=== PATIENT | male | born 1985 | race Caucasian/White ===

== ENCOUNTER 2022-05-12 06:59 | Emergency (ER) | payer OTHER, SELFPAY ==
--- NOTE | ~2022-05-12 | XR_ITS ---
EXAMINATION: XR CHEST CLINICAL INFORMATION: Chest pain. COMPARISON: None TECHNIQUE: Frontal view of the chest was obtained. FINDINGS: No significant abnormality is noted involving the heart, lungs, mediastinum, bony thorax or soft tissues. XR/XR chest 1V IMPRESSION: No acute cardiopulmonary process.
[2022-05-12 07:06] VITALS: BP 142/66; PULSE 66; RESP 20; TEMP 36.3; O2SAT 98; BMI 58.1
--- NOTE | 2022-05-12 07:06 | ECG_ITS ---
Test Reason : cp Blood Pressure : / mmHG Vent. Rate : 066 BPM Atrial Rate : 066 BPM P-R Int : 142 ms QRS Dur : 098 ms QT Int : 426 ms P-R-T Axes : 016 007 -06 degrees QTc Int : 446 ms Normal sinus rhythm Low voltage QRS ST elevation in Lateral leads Abnormal ECG No previous ECGs available Referred By: Generic ED Physician Electronically Signed By:ANGELIA THOMAS
--- NOTE | 2022-05-12 07:14 | ED.CHESTPAIN ---
HPI - Chest Pain General Chief Complaint: Chest Pain Stated Complaint: Chest pain, n/v Time Seen by Provider: 05/12/22 07:05 Source: patient Mode of arrival: ambulatory Limitations: no limitations History of Present Illness HPI narrative: 36 yo male with hx of obesity, wheezing, urinary incontinence notes this AM he just felt off, his chest feels tight, he feels nauseated and just doesn't feel well with a sore throat. He took a rapid test it was negative. No known sick contacts. 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 MD complaint: chest pain (nausea, dizziness) Onset (ago): day(s) (2) Timing of current episode: constant Prior episodes: No Onset: during rest Pain location: left chest and right chest Pain radiation: none Severity: mild Quality: tightness Relieving factors: nothing Exacerbating factors: movement Associated symptoms: nausea, dyspnea and cough Treatment prior to arrival: none Related Data Previous Rx's Medication Instructions Recorded albuterol sulfate 90 mcg/actuation 2 puff inhalation QID PRN 05/12/22 aerosol inhaler shortness of breath or wheezing #6.7 grams clotrimazole 1 % topical cream 1 appl topical BID 2 weeks #30 05/12/22 (Athlete's Foot (clotrimazole)) grams fluticasone furoate 100 1 inh inhalation Q24H #30 ea 05/12/22 mcg/actuation blister powder for inhalation nystatin 100,000 unit/gram topical 1 appl topical DAILY 1 week #30 05/12/22 powder grams ondansetron 4 mg disintegrating 4 mg PO Q8H PRN nausea and 05/12/22 tablet vomiting #20 tabs Allergies Allergy/AdvReac Type Severity Reaction Status Date / Time divalproex sodium Allergy Severe HIVES Verified 05/12/22 07:43 [From [facility]] Review of Systems Review of Systems: Constitutional : No Weight loss, No Fever, pos Chills ENT/Mouth : No sore throat, No Rhinorrhea Eyes: No Eye Pain, No Swelling Cardiovascular : pos Chest Pain, pos SOB, no Dyspnea on Exertion, No Orthopnea, No Edema, No Palpitations Respiratory : pos Cough, No Sputum Gastrointestinal : pos Nausea, No Vomiting, No Diarrhea, No abdominal Pain, No Hematochezia, No Melena Genitourinary : No Dysuria, No Urinary Frequency Musculoskeletal : No joint pain, No Myalgias, No Joint Swelling Skin : No Skin Lesions, No rash Neuro : No Weakness, No Numbness, pos Dizziness, No Headache Psych : No Anxiety/Panic, No Depression Heme/Lymph: No Bruising, No Lymphadenopathy Endocrine : No Polyuria, No Polydipsia All other systems reviewed and are negative [facility] Past Medical History Attestation statement: The following information was validated with the patient. Medical History Obesity Urinary incontinence Wheezing Social History Social History (Updated 05/12/22 @ 07:35 by Erika Nino DO) Patient Tobacco Use Status: Current everyday Tobacco user Use of substances other than those prescribed or required for medical reasons: No Advance Directives: Yes Advance Directives Information Provided: Yes Advance Directives on File: No Physical Exam Vital Signs: Vital Signs: Last Vital Signs Temp 97.5 F 05/12/22 11:53 Pulse 57 05/12/22 11:53 Resp 23 H 05/12/22 11:53 BP 113/64 05/12/22 11:53 Pulse Ox 95 05/12/22 11:53 O2 Del Method 05/12/22 11:53 BMI result Body Mass Index 58.1 Appearance: Alert. Oriented X3. No acute distress. Eyes: Pupils equal, round and reactive to light. ENT: Pharynx normal. Neck: Normal inspection. Neck supple. CVS: Normal heart rate and rhythm. Pulses normal. Respiratory: No respiratory distress. Breath sounds diffuse wheezing noted Abdomen: Soft and nontender. Obese Skin: Skin warm and dry. Normal skin color. Normal skin turgor. Extremities: No lower extremity edema. No calf ttp Neuro: Oriented X 3. No motor deficit. No sensory deficit. Course Course Course Narrative: patient feels much better repeat trop flat ddimer negative CXR and COVID negative Procedures Procedure Narrative Procedure Narrative: bedside ECHO no pericardial effusion seen no GWMA MDM - Chest Pain MDM Narrative Medical decision making narrative: 36 yo male with hx of obesity, wheezing, urinary incontinence comes in with constellation of symptoms with chills, chest tightness/wheezing, nonspecific EKG - could be COVID infection at this time will need labs, troponin, ddimer, CXR, duoneb, IV zofran. Possible viral infection - dispo per results and findings. Lab Data Result diagrams: 05/12/22 07:54 05/12/22 07:53 Labs: Lab Results 05/12/22 05/12/22 05/12/22 Range/Units 07:53 07:53 07:53 WBC (4.8-10.8) X10*3/uL RBC (4.60-5.80) X10*6/uL Hgb (14.0-18.0) g/dl Hct (42.0-52.0) % MCV (80.0-98.0) fL MCH (27.0-33.0) pg MCHC (31.0-36.0) g/dl RDW (11.0-16.0) % Plt Count (160-400) X10*3/uL MPV (9.4-12.4) fL Immature Gran % (Auto) (0.0-0.4) % Neut % (Auto) (45-73) % Lymph % (Auto) (20-40) % [place] % (Auto) (2-11) % Eos % (Auto) (0-4) % Baso % (Auto) (0-2) % Lymph # (Auto) (1.2-4.9) X10*3/uL [place] # (Auto) (0.1-1.2) X10*3/uL Eos # (Auto) (0.0-0.4) X10*3/uL Baso # (Auto) (0.0-0.2) X10*3/uL Abs Immat Gran (auto) (0.00-0.03) X10*3/uL Absolute Neuts (auto) (2.0-8.3) x10*3/uL Absolute Nucleated RBC (0.0-0.012) X10*3/uL Nucleated RBC % (auto) (0.0-0.2) /100WBC D-Dimer High Sensitivty < 150 NG/ML Sodium 140 (135-145) mmol/L Potassium 4.0 (3.3-5.1) mmol/L Chloride 106 (96-108) mmol/L Carbon Dioxide 23 (22-29) mmol/L Anion Gap 15 (12-20) BUN 17 H (9-16) mg/dL Creatinine 0.88 (0.5-1.4) mg/dL Estim Creat Clear Calc 198.3 Estimated GFR > 60 Random Glucose 118 H (60-115) mg/dL Calcium 8.9 (8.4-10.2) mg/dL Magnesium 2.0 (1.6-2.6) mg/dL Total Bilirubin 0.7 (0.0-1.0) mg/dL Direct Bilirubin 0.3 (0.0-0.5) mg/dL AST 30 (5-37) U/L ALT 47 H (0-40) U/L Alkaline Phosphatase 89 (39-117) U/L Troponin I High Sens < 3.5 (<3.5-35.0) ng/L B-Natriuretic Peptide < 10 (<100) pg/mL Total Protein 6.9 (6.5-8.0) g/dL Albumin 4.2 (3.5-5.0) g/dL COVID-19 (NICHOL) (Negative) COVID-19 Clin Com 05/12/22 05/12/22 05/12/22 Range/Units 07:53 07:54 11:08 WBC 6.5 (4.8-10.8) X10*3/uL RBC 5.23 (4.60-5.80) X10*6/uL Hgb 15.5 (14.0-18.0) g/dl Hct 46.8 (42.0-52.0) % MCV 89.5 (80.0-98.0) fL MCH 29.6 (27.0-33.0) pg MCHC 33.1 (31.0-36.0) g/dl RDW 14.1 (11.0-16.0) % Plt Count 219 (160-400) X10*3/uL MPV 10.1 (9.4-12.4) fL Immature Gran % (Auto) 0.8 H (0.0-0.4) % Neut % (Auto) 70.2 (45-73) % Lymph % (Auto) 17.8 L (20-40) % [place] % (Auto) 8.3 (2-11) % Eos % (Auto) 2.3 (0-4) % Baso % (Auto) 0.6 (0-2) % Lymph # (Auto) 1.2 (1.2-4.9) X10*3/uL [place] # (Auto) 0.5 (0.1-1.2) X10*3/uL Eos # (Auto) 0.2 (0.0-0.4) X10*3/uL Baso # (Auto) 0.0 (0.0-0.2) X10*3/uL Abs Immat Gran (auto) 0.05 H (0.00-0.03) X10*3/uL Absolute Neuts (auto) 4.6 (2.0-8.3) x10*3/uL Absolute Nucleated RBC 0.000 (0.0-0.012) X10*3/uL Nucleated RBC % (auto) 0.0 (0.0-0.2) /100WBC D-Dimer High Sensitivty NG/ML Sodium (135-145) mmol/L Potassium (3.3-5.1) mmol/L Chloride (96-108) mmol/L Carbon Dioxide (22-29) mmol/L Anion Gap (12-20) BUN (9-16) mg/dL Creatinine (0.5-1.4) mg/dL Estim Creat Clear Calc Estimated GFR Random Glucose (60-115) mg/dL Calcium (8.4-10.2) mg/dL Magnesium (1.6-2.6) mg/dL Total Bilirubin (0.0-1.0) mg/dL Direct Bilirubin (0.0-0.5) mg/dL AST (5-37) U/L ALT (0-40) U/L Alkaline Phosphatase (39-117) U/L Troponin I High Sens < 3.5 (<3.5-35.0) ng/L B-Natriuretic Peptide (<100) pg/mL Total Protein (6.5-8.0) g/dL Albumin (3.5-5.0) g/dL COVID-19 (NICHOL) Negative (Negative) COVID-19 Clin Com See Note ECG Data ECG #1: Attestation: I personally reviewed and interpreted this ECG as follows: ECG interpretation date: 05/12/22 ECG interpretation time: 07:15 Interpretation: Rate: 66 Rhythm: NSR [place]: normal Normal P waves. Normal BRITTANY. Normal QRS complex. ST T wave : inverted inf leads, no RASHAUN, inverted t waves V1-V3 qTC: normal prior studies: none available The study has been interpreted contemporaneously by me. . ECG #2: Attestation: I personally reviewed and interpreted this ECG as follows: ECG interpretation date: 05/12/22 ECG interpretation time: 12:26 Interpretation: Rate: 58 Rhythm: NSR [place]: normal Normal P waves. Normal BRITTANY. Normal QRS complex. ST T wave : nonspecific no RASHAUN qTC: normal prior studies: no sig change The study has been interpreted contemporaneously by me. . Discharge Plan Discharge Clinical Impression: Atypical chest pain, Acute viral syndrome, Wheezing Patient Disposition: Home, Self-Care Instructions: Chest Pain (ED), Viral Syndrome (ED), Wheezing (ED) Additional Instructions: return to ED for any worsening symptoms or concerns please follow up with your primary care doctor next week Prescriptions: New clotrimazole [Athlete's Foot (clotrimazole)] 1 % cream 1 appl topical BID 14 Days Qty: 30 0RF nystatin 100,000 unit/gram powder 1 appl topical DAILY 7 Days Qty: 30 0RF albuterol sulfate 90 mcg/actuation HFA aerosol inhaler 2 puff inhalation QID PRN (Reason: shortness of breath or wheezing) Qty: 6.7 0RF fluticasone furoate 100 mcg/actuation blister with device 1 inh inhalation Q24H Qty: 30 0RF Rx Instructions: rinse mouth after ondansetron 4 mg tablet,disintegrating 4 mg PO Q8H PRN (Reason: nausea and vomiting) Qty: 20 0RF Referrals: Trevor Gatica MD [Physician] - 2 weeks Stand Alone Forms: Work/School Release
[2022-05-12] MEDS: Albuterol/Iprat 2.5/0.5MG 3 ML AMPUL.NEB INHALE (07:33)
[2022-05-12 07:35] VITALS: PULSE 60; RESP 18; O2SAT 100
[2022-05-12] MEDS: ondansetron HCL 4 MG/2 ML VIAL IVPUSH (07:58)
[2022-05-12 07:59] LABS: MANUAL DIFF FLAG NO
[2022-05-12 08:01] LABS: Basophils Percent Auto 0.6 % (0-2); Eosinophils Absolute Auto 0.2 X10*3/uL (0.0-0.4); Eosinophils Percent Auto 2.3 % (0-4); Hematocrit 46.8 % (42.0-52.0); Hemoglobin 15.5 g/dl (14.0-18.0); Imm Gran Abs Auto 0.05 X10*3/uL (0.00-0.03); Imm Gran Pct Auto 0.8 % (0.0-0.4); Lymphocytes Absolute Auto 1.2 X10*3/uL (1.2-4.9); Lymphocytes Percent Auto 17.8 % (20-40); Mean Corpuscular HGB Conc 33.1 g/dl (31.0-36.0); Mean Corpuscular Hemoglobin 29.6 pg (27.0-33.0); Mean Corpuscular Volume 89.5 fL (80.0-98.0); Mean Platelet Volume 10.1 fL (9.4-12.4); Monocytes Absolute Auto 0.5 X10*3/uL (0.1-1.2); Monocytes Percent Auto 8.3 % (2-11); Neutrophils Absolute Auto 4.6 x10*3/uL (2.0-8.3); Neutrophils Percent Auto 70.2 % (45-73); Platelet Count 219 X10*3/uL (160-400); Red Blood Count 5.23 X10*6/uL (4.60-5.80); Red Cell Distribution Width 14.1 % (11.0-16.0); White Blood Count 6.5 X10*3/uL (4.8-10.8)
[2022-05-12 08:13] LABS: D Dimer High Sensitivity < 150 NG/ML
[2022-05-12 08:16] LABS: IDNOW Serial# 55D5AD1C
[2022-05-12 08:17] LABS: COVID-19 Test Negative (Negative)
[2022-05-12 08:19] LABS: Alanine Aminotransferase 47 U/L (0-40); Albumin Level 4.2 g/dL (3.5-5.0); Alkaline Phosphatase 89 U/L (39-117); Anion Gap 15 (12-20); Aspartate Amino Transferase 30 U/L (5-37); Bilirubin Direct 0.3 mg/dL (0.0-0.5); Bilirubin Total 0.7 mg/dL (0.0-1.0); Blood Urea Nitrogen 17 mg/dL (9-16); Calcium 8.9 mg/dL (8.4-10.2); Carbon Dioxide 23 mmol/L (22-29); Chloride 106 mmol/L (96-108); Creatinine Clr Calc Pharmacy 198.3; Estimated Glomerular Filt Rate > 60; Glucose Random 118 mg/dL (60-115); Sodium 140 mmol/L (135-145); Total Protein 6.9 g/dL (6.5-8.0)
[2022-05-12 08:25] LABS: B Type Natriuretic Peptide < 10 pg/mL (<100); Troponin-I High Sensitivity < 3.5 ng/L (<3.5-35.0)
--- NOTE | 2022-05-12 09:33 | PC.NURSE ---
PT SLEEPING AT THIS TIME. WILL CONTINUE TO MONITOR
[2022-05-12 11:14] VITALS: BP 113/56; PULSE 59; RESP 26; O2SAT 94
[2022-05-12 11:48] LABS: Troponin-I High Sensitivity < 3.5 ng/L (<3.5-35.0)
[2022-05-12 11:53] VITALS: BP 113/64; PULSE 57; RESP 23; TEMP 36.4; O2SAT 95
--- NOTE | 2022-05-12 11:56 | PC.NURSE ---
Pt V/S are stable, Pt is on the telemetry and shows sinus bradychardia. Pt a/o x4. Will continue to monitor.
--- NOTE | 2022-05-12 12:06 | ECG_ITS ---
Test Reason : dyspnea Blood Pressure : / mmHG Vent. Rate : 058 BPM Atrial Rate : 058 BPM P-R Int : 152 ms QRS Dur : 098 ms QT Int : 466 ms P-R-T Axes : 016 021 004 degrees QTc Int : 457 ms Sinus bradycardia Low voltage QRS ST elevation in Lateral leads Nonspecific T wave abnormality Abnormal ECG When compared with ECG of 12-MAY-2022 07:06, Nonspecific T wave abnormality is now Present Referred By: Erika Nino Electronically Signed By:ANGELIA THOMAS
--- NOTE | 2022-05-12 12:27 | PC.NURSE ---
ekg performed by tech, provider in room performing bedside us
== END 2022-05-12 12:59 | disposition home or self-care (01) ==
PROVIDERS: Emergency Provider Emergency Medicine
DX: B34.9 Viral infection, unspecified (principal); R06.00 Dyspnea, unspecified; R07.89 Other chest pain; R42 Dizziness and giddiness; R06.02 Shortness of breath; Z20.822 Contact with and (suspected) exposure to COVID-19; Z79.899 Other long term (current) drug therapy; F17.200 Nicotine dependence, unspecified, uncomplicated; Z71.6 Tobacco abuse counseling
CPT/HCPCS: 36415; 71045; 80048; 80076; 83735; 83880; 84484; 85025; 85379; 87635; 93005; 94640; 96374; 99284; 99285; J2405

== ENCOUNTER 2022-07-03 21:16 | Emergency (ER) | payer OTHER, SELFPAY ==
--- NOTE | ~2022-07-03 | XR_ITS ---
EXAMINATION: XR CHEST CLINICAL INFORMATION: Chest tightness with deep breathing COMPARISON: 05/12/2022 TECHNIQUE: Frontal view of the chest was obtained. FINDINGS: No significant abnormality is noted involving the heart, lungs, mediastinum, bony thorax or soft tissues. XR/XR chest 1V IMPRESSION: Unremarkable examination.
[2022-07-03 21:19] VITALS: BP 158/56; PULSE 78; RESP 18; TEMP 37.1; O2SAT 97; BMI 55.7
--- NOTE | 2022-07-03 21:34 | ECG_ITS ---
Test Reason : SOB Blood Pressure : / mmHG Vent. Rate : 071 BPM Atrial Rate : 071 BPM P-R Int : 156 ms QRS Dur : 102 ms QT Int : 384 ms P-R-T Axes : 049 013 016 degrees QTc Int : 417 ms Normal sinus rhythm Intra-ventricular conduction delay Low voltage QRS Borderline ECG When compared with ECG of 12-MAY-2022 12:20, No significant change was found Referred By: Lisa Stone Electronically Signed By:DESTINI KUMAR MD
[2022-07-03 22:02] LABS: MANUAL DIFF FLAG NO
[2022-07-03 22:03] LABS: Basophils Absolute Auto 0.1 X10*3/uL (0.0-0.2); Basophils Percent Auto 0.5 % (0-2); Eosinophils Absolute Auto 0.2 X10*3/uL (0.0-0.4); Eosinophils Percent Auto 1.7 % (0-4); Imm Gran Abs Auto 0.07 X10*3/uL (0.00-0.03); Imm Gran Pct Auto 0.6 % (0.0-0.4); Lymphocytes Percent Auto 17.2 % (20-40); Mean Corpuscular HGB Conc 33.3 g/dl (31.0-36.0); Mean Corpuscular Hemoglobin 29.7 pg (27.0-33.0); Mean Corpuscular Volume 89.1 fL (80.0-98.0); Mean Platelet Volume 10.1 fL (9.4-12.4); Monocytes Absolute Auto 0.6 X10*3/uL (0.1-1.2); Monocytes Percent Auto 4.9 % (2-11); Neutrophils Absolute Auto 8.6 x10*3/uL (2.0-8.3); Neutrophils Percent Auto 75.1 % (45-73); Platelet Count 249 X10*3/uL (160-400); Red Blood Count 5.05 X10*6/uL (4.60-5.80); Red Cell Distribution Width 13.7 % (11.0-16.0); White Blood Count 11.4 X10*3/uL (4.8-10.8)
[2022-07-03] MEDS: Fluorescein Sodium STRIP 1 STRIP EYE-BOTH (22:15)
[2022-07-03] MEDS: Tetracaine HCl/PF 0.5% Oph Sol 4 ML DROPS 1 DROP EYE-BOTH (22:15)
[2022-07-03 22:18] LABS: Anion Gap 14 (12-20); Blood Urea Nitrogen 13 mg/dL (9-16); Calcium 9.1 mg/dL (8.4-10.2); Carbon Dioxide 25 mmol/L (22-29); Chloride 107 mmol/L (96-108); Creatinine Clr Calc Pharmacy 184.8; Estimated Glomerular Filt Rate > 60; Glucose Random 108 mg/dL (60-115); Potassium 3.7 mmol/L (3.3-5.1); Sodium 142 mmol/L (135-145)
[2022-07-03 22:20] LABS: Influenza A PCR NEGATIVE (Negative); Influenza B PCR NEGATIVE (Negative); Resp Syncy Virus RNA Qual PCR NEGATIVE (Negative); SARS COV2 PCR INHOUSE NEGATIVE (Negative)
--- NOTE | 2022-07-03 22:21 | ED_ITS ---
HPI - General Adult General Chief complaint: General Medical Stated complaint: foreign object in eye Time Seen by Provider: 07/03/22 21:59 Source: patient Mode of arrival: ambulatory Limitations: no limitations History of Present Illness HPI narrative: Patient comes to the emergency room complaining of foreign body in his right eye. Also complaining of chronic chest tightness and mild shortness of breath. Patient states that yesterday he was working under a car, hit a felt something go into his eye. Patient has been trying to rinse is high at home and applied erythromycin ointment that he had left over from a similar incidents. Patient states that he does not have pain with eye movement, but is complaining of constant foreign body sensation in the eye. Patient has history of chronic shortness of breath. To his knowledge, he has never been diagnosed with asthma on shortness of breath. However, he has been prescribed prednisone in the past. Patient admits to smoking daily. Patient denies coughing, no fever or chills Related Data Previous Rx's Medication Instructions Recorded albuterol sulfate 90 mcg/actuation 2 puff inhalation QID PRN 05/12/22 aerosol inhaler shortness of breath or wheezing #6.7 grams clotrimazole 1 % topical cream 1 appl topical BID 2 weeks #30 05/12/22 (Athlete's Foot (clotrimazole)) grams fluticasone furoate 100 1 inh inhalation Q24H #30 ea 05/12/22 mcg/actuation blister powder for inhalation nystatin 100,000 unit/gram topical 1 appl topical DAILY 1 week #30 05/12/22 powder grams ondansetron 4 mg disintegrating 4 mg PO Q8H PRN nausea and 05/12/22 tablet vomiting #20 tabs albuterol sulfate 90 mcg/actuation 2 puff inhalation Q4-6H PRN 07/03/22 aerosol inhaler shortness of breath or wheezing #8.5 grams erythromycin 5 mg/gram (0.5 %) eye 0.5 inch ophthalmic (eye) QID #3.5 07/03/22 ointment grams prednisone 50 mg tablet 50 mg PO DAILY #5 tabs 07/03/22 Allergies Allergy/AdvReac Type Severity Reaction Status Date / Time divalproex sodium Allergy Severe HIVES Verified 05/12/22 07:43 [From [facility]] Review of Systems Review of Systems: Constitutional : No Weight loss, No Fever, No Chills, No Night Sweats, No Fatigue, No Malaise ENT/Mouth : No Hearing loss, No Ear Pain, No Nasal Congestion, No Sinus Pain, No Hoarseness, No sore throat, No Rhinorrhea, No Swallowing Difficulty Eyes: Complaining of eye foreign body sensation, redness, burning sensation, denies pain with eye movement, states that his vision is at baseline bilaterally Cardiovascular : No Chest Pain, no edema, no palpitations Respiratory : No Cough, complaining of chronic shortness of breath Gastrointestinal : No Nausea, No Vomiting, No Diarrhea, No Constipation, No abdominal Pain, No Hematochezia, No Melena Genitourinary : no irregular bleeding, No Dysuria, No Urinary Frequency, No Hematuria, No Urinary Incontinence, No Urgency, No Flank Pain, No Urinary Flow Changes, No Hesitancy Musculoskeletal : No joint pain, No Myalgias, No Joint Swelling Skin : No Skin Lesions, No rash Neuro : No Weakness, No Numbness, No Paresthesias, No Loss of Consciousness, No Dizziness, No Headache Psych : No Anxiety/Panic, No Depression, No SI/HI/AH/VH, No Social Issues, Heme/Lymph: No Bruising, No Bleeding,No Lymphadenopathy Endocrine : No Polyuria, No Polydipsia, No Temperature Intolerance PMFSH Past Medical History Medical History Obesity Urinary incontinence Wheezing Social History Social History (Updated 05/12/22 @ 07:35 by Erika Nino DO) Patient Tobacco Use Status: Current everyday Tobacco user Advance Directives: No Physical Exam ED Vital Signs: Vital Signs - 24 hr 07/03/22 21:19 07/03/22 22:46 Temperature 98.7 F Pulse Rate 78 67 Respiratory Rate 18 16 Blood Pressure 158/56 H Pulse Oximetry 97 Oxygen Delivery Method Room Air BMI result Body Mass Index 55.7 Const Other: Appearance: Alert. Oriented X3. No acute distress. Eyes: Pupils equal, round and reactive to light. Injected sclera and conjunctiva in the right eye, no foreign body visualized, no corneal injury under Wood's lamp and fluorescein stain, eye pressure 22 mmHg ENT: Pharynx normal. Neck: Normal inspection. Neck supple. No lymph nodes noted. No crepitus CVS: Normal heart rate and rhythm. Pulses normal. Normal S1 and S2 Respiratory: No respiratory distress. Breath sounds normal. No Wheezing. No rales Abdomen: Soft and nontender. No rigidity. No distention. Skin: Skin warm and dry. Normal skin color. Normal skin turgor. Extremities: No lower extremity edema. No Lacerations. No Rash Neuro: Oriented X 3. No motor deficit. No sensory deficit. Moving all extremities. No slurred speech. CN 2 through 12 grossly intact Psych: calm, cooperative, normal affect Course Course Course Narrative: Patient has significant scleral injection, no corneal injuries were visualized under Wood's lamp with fluorescein stain. Eye pressure 22 mmHg, not concerning for closed angle glaucoma. Discussed with patient that he will need more erythromycins ointment, and he will be provided with Dr. Longoria's office phone number Patient does have mild wheezing. I discussed with the patient that he may be a at the beginning of COPD. Patient is a heavy smoker. Discussed with the patient that he needs to follow up with his primary care physician and be referred for a pulmonary function test Patient is receiving at this time oral prednisone and a breathing treatment with albuterol Patient's EKG, troponin, BNP, chest x-ray, COVID/RSV/flu test negative. White blood cell count slightly elevated 11.4, likely reactive leukocytosis. Medications Administered Discontinued Medications Generic Name Dose Route Start Last Admin Trade Name Freq PRN Reason Stop Dose Admin Albuterol Sulfate 2.5 mg 07/03/22 22:31 07/03/22 22:44 Albuterol Sulfate (0.083%) 2.5 Mg/3 Ml Vial.Neb INHALE 07/03/22 22:32 2.5 mg ONCE ONE Administration Prednisone 60 mg 07/03/22 22:31 07/03/22 23:06 Prednisone 20 Mg Tablet PO 07/03/22 22:32 60 mg ONCE ONE Administration Medical Decision Making Lab Data Result diagrams: 07/03/22 21:56 07/03/22 21:56 Labs: Lab Results 07/03/22 07/03/22 07/03/22 Range/Units 21:26 21:56 21:56 WBC 11.4 H (4.8-10.8) X10*3/uL RBC 5.05 (4.60-5.80) X10*6/uL Hgb 15.0 (14.0-18.0) g/dl Hct 45.0 (42.0-52.0) % MCV 89.1 (80.0-98.0) fL MCH 29.7 (27.0-33.0) pg MCHC 33.3 (31.0-36.0) g/dl RDW 13.7 (11.0-16.0) % Plt Count 249 (160-400) X10*3/uL MPV 10.1 (9.4-12.4) fL Immature Gran % (Auto) 0.6 H (0.0-0.4) % Neut % (Auto) 75.1 H (45-73) % Lymph % (Auto) 17.2 L (20-40) % [place] % (Auto) 4.9 (2-11) % Eos % (Auto) 1.7 (0-4) % Baso % (Auto) 0.5 (0-2) % Lymph # (Auto) 2.0 (1.2-4.9) X10*3/uL [place] # (Auto) 0.6 (0.1-1.2) X10*3/uL Eos # (Auto) 0.2 (0.0-0.4) X10*3/uL Baso # (Auto) 0.1 (0.0-0.2) X10*3/uL Abs Immat Gran (auto) 0.07 H (0.00-0.03) X10*3/uL Absolute Neuts (auto) 8.6 H (2.0-8.3) x10*3/uL Absolute Nucleated RBC 0.000 (0.0-0.012) X10*3/uL Nucleated RBC % (auto) 0.0 (0.0-0.2) /100WBC Sodium 142 (135-145) mmol/L Potassium 3.7 (3.3-5.1) mmol/L Chloride 107 (96-108) mmol/L Carbon Dioxide 25 (22-29) mmol/L Anion Gap 14 (12-20) BUN 13 (9-16) mg/dL Creatinine 0.92 (0.5-1.4) mg/dL Estim Creat Clear Calc 184.8 Estimated GFR > 60 Random Glucose 108 (60-115) mg/dL Calcium 9.1 (8.4-10.2) mg/dL Troponin I High Sens (<3.5-35.0) ng/L B-Natriuretic Peptide (<100) pg/mL Influenza Type A (PCR) NEGATIVE (Negative) Influenza Type B (PCR) NEGATIVE (Negative) RSV RNA Qual (PCR) NEGATIVE (Negative) SARS-CoV-2 RNA (RT-PCR) NEGATIVE (Negative) 07/03/22 07/03/22 Range/Units 21:56 21:56 WBC (4.8-10.8) X10*3/uL RBC (4.60-5.80) X10*6/uL Hgb (14.0-18.0) g/dl Hct (42.0-52.0) % MCV (80.0-98.0) fL MCH (27.0-33.0) pg MCHC (31.0-36.0) g/dl RDW (11.0-16.0) % Plt Count (160-400) X10*3/uL MPV (9.4-12.4) fL Immature Gran % (Auto) (0.0-0.4) % Neut % (Auto) (45-73) % Lymph % (Auto) (20-40) % [place] % (Auto) (2-11) % Eos % (Auto) (0-4) % Baso % (Auto) (0-2) % Lymph # (Auto) (1.2-4.9) X10*3/uL [place] # (Auto) (0.1-1.2) X10*3/uL Eos # (Auto) (0.0-0.4) X10*3/uL Baso # (Auto) (0.0-0.2) X10*3/uL Abs Immat Gran (auto) (0.00-0.03) X10*3/uL Absolute Neuts (auto) (2.0-8.3) x10*3/uL Absolute Nucleated RBC (0.0-0.012) X10*3/uL Nucleated RBC % (auto) (0.0-0.2) /100WBC Sodium (135-145) mmol/L Potassium (3.3-5.1) mmol/L Chloride (96-108) mmol/L Carbon Dioxide (22-29) mmol/L Anion Gap (12-20) BUN (9-16) mg/dL Creatinine (0.5-1.4) mg/dL Estim Creat Clear Calc Estimated GFR Random Glucose (60-115) mg/dL Calcium (8.4-10.2) mg/dL Troponin I High Sens < 3.5 (<3.5-35.0) ng/L B-Natriuretic Peptide < 10 (<100) pg/mL Influenza Type A (PCR) (Negative) Influenza Type B (PCR) (Negative) RSV RNA Qual (PCR) (Negative) SARS-CoV-2 RNA (RT-PCR) (Negative) Discharge Plan Discharge Clinical Impression: Sensation of foreign body in eye, Bilateral wheezing Patient Disposition: Home, Self-Care Instructions: Eye Foreign Body (ED) Additional Instructions: Please follow-up with your primary care physician tomorrow an cyber crime investigator. You may need a referral for pulmonary function tests, you may have asthma versus COPD. If you have any worsening or new symptoms, please return to the emergency room or call 911 Prescriptions: New prednisone 50 mg tablet 50 mg PO DAILY Qty: 5 0RF albuterol sulfate 90 mcg/actuation HFA aerosol inhaler 2 puff inhalation Q4-6H PRN (Reason: shortness of breath or wheezing) Qty: 8.5 0RF erythromycin 5 mg/gram (0.5 %) ointment 0.5 inch ophthalmic (eye) QID Qty: 3.5 0RF No Action clotrimazole [Athlete's Foot (clotrimazole)] 1 % cream 1 appl topical BID 14 Days Qty: 30 0RF nystatin 100,000 unit/gram powder 1 appl topical DAILY 7 Days Qty: 30 0RF albuterol sulfate 90 mcg/actuation HFA aerosol inhaler 2 puff inhalation QID PRN (Reason: shortness of breath or wheezing) Qty: 6.7 0RF fluticasone furoate 100 mcg/actuation blister with device 1 inh inhalation Q24H Qty: 30 0RF Rx Instructions: rinse mouth after ondansetron 4 mg tablet,disintegrating 4 mg PO Q8H PRN (Reason: nausea and vomiting) Qty: 20 0RF Referrals: Atul Longoria [Physician] - 1 day
[2022-07-03 22:26] LABS: Troponin-I High Sensitivity < 3.5 ng/L (<3.5-35.0)
[2022-07-03] MEDS: Albuterol Sulfate (0.083%) 2.5 MG/3 ML VIAL.NEB INHALE (22:44)
[2022-07-03 22:46] VITALS: PULSE 67; RESP 16; O2SAT 96
[2022-07-03 23:01] LABS: B Type Natriuretic Peptide < 10 pg/mL (<100)
[2022-07-03] MEDS: predniSONE 20 MG TABLET 60 MG PO (23:06)
--- NOTE | 2022-07-03 23:07 | PC.NURSE ---
Administered prednisone per MAR.
--- NOTE | 2022-07-04 00:04 | PC.NURSE ---
Discharge instructions given and explained to patient, ambulates safely and independently. No respiratory distress. Patient speaking in full sentences.
== END 2022-07-04 00:05 | disposition home or self-care (01) ==
PROVIDERS: Emergency Provider Emergency Medicine; PCP Nurse Practitioner Family
DX: R06.2 Wheezing (principal); Z18.89 Other specified retained foreign body fragments; R06.02 Shortness of breath; Z20.822 Contact with and (suspected) exposure to COVID-19; F17.200 Nicotine dependence, unspecified, uncomplicated; Z71.6 Tobacco abuse counseling
CPT/HCPCS: 0241U; 36415; 71045; 80048; 83880; 84484; 85025; 93005; 94640; 99284; 99285

== ENCOUNTER 2024-08-07 13:18 | Emergency (ER) | payer SELFPAY ==
--- NOTE | ~2024-08-07 | US_ITS ---
EXAMINATION: US VENOUS LEFT LOWER EXTREMITY CLINICAL INFORMATION: Left leg edema COMPARISON: None. TECHNIQUE: Doppler spectral analysis and color flow Doppler imaging was performed of the left lower extremity. Compression and augmentation maneuvers were performed. FINDINGS: The left common femoral, femoral, popliteal and calf veins were well-identified and normal. They demonstrate normal compressibility and color fill-in. 3 prominent lymph nodes are present in the left groin with the largest measuring 6.0 x 1.0 x 2.7 cm US/US venous duplex LE LT IMPRESSION: No evidence for left lower extremity deep vein thrombosis. Electronically signed by: Frederick Lopez MD 08/07/2024 03:48 PM [facility]
[2024-08-07 13:48] VITALS: BP 166/119; PULSE 71; RESP 16; TEMP 36.8; O2SAT 98; BMI 62.3
--- NOTE | 2024-08-07 13:51 | ED_ITS ---
HPI - General Adult General Chief complaint: General Medical Stated complaint: infection Time Seen by Provider: 08/07/24 22:42 Source: patient and family Mode of arrival: ambulatory Limitations: no limitations History of Present Illness ED Provider: DR. Mims HPI narrative: A 39-year-old male came in for evaluation of left lower extremity infection. Left leg redness, hotness, tenderness and swelling over the past 2-3 days, patient took his friend's antibiotic doxycycline x4 pills. Patient with chronic herniated disc for over 10 years patient that required back surgery but patient declined the surgery, for the past 10 days patient been getting episodes of low back pain radiating to the left lower extremity, urinary incontinence that has been getting worse over the past 5 weeks, because they urinary incontinence patient thinks that it does irritate his skin and caused the infection. Otherwise no recent travel, no chest pain, no shortness of breath. No history of IV drug abuse. Related Data Previous Rx's ?Medication ?Instructions ?Recorded albuterol sulfate 90 mcg/actuation 2 puff inhalation QID PRN 05/12/22 aerosol inhaler shortness of breath or wheezing #6.7 grams clotrimazole 1 % topical cream 1 appl topical BID 2 weeks #30 05/12/22 (Athlete's Foot (clotrimazole)) grams fluticasone furoate 100 1 inh inhalation Q24H #30 ea 05/12/22 mcg/actuation blister powder for inhalation nystatin 100,000 unit/gram topical 1 appl topical DAILY 1 week #30 05/12/22 powder grams ondansetron 4 mg disintegrating 4 mg PO Q8H PRN nausea and 05/12/22 tablet vomiting #20 tabs albuterol sulfate 90 mcg/actuation 2 puff inhalation Q4-6H PRN 07/03/22 aerosol inhaler shortness of breath or wheezing #8.5 grams erythromycin 5 mg/gram (0.5 %) eye 0.5 inch ophthalmic (eye) QID #3.5 07/03/22 ointment grams prednisone 50 mg tablet 50 mg PO DAILY #5 tabs 07/03/22 doxycycline hyclate 100 mg tablet 100 mg PO BID #20 tabs 08/07/24 Allergies Allergy/AdvReac Type Severity Reaction Status Date / Time divalproex sodium Allergy Severe HIVES Verified 08/07/24 13:54 [From [facility]] Review of Systems 2 Review of Systems: All other systems are reviewed and are negative Constitutional: Reports as per HPI and Reports no additional constitutional complaints Eyes: Reports as per HPI and Reports no additional eye complaints Reports system reviewed and no additional complaints, except as documented Cardiovascular: Reports as per HPI and Reports no additional cardiovascular complaints Respiratory: Reports as per HPI and Reports no additional respiratory complaints Gastrointestinal: Reports as per HPI and Reports no additional gastrointestinal complaints Genitourinary: Reports no additional female genitourinary complaints Musculoskeletal: Reports no additional musculoskeletal complaints Skin/Breast: Reports system reviewed and no additional complaints, except as docu Psychiatric: Reports no additional psychiatric complaints Endocrine: Reports no additional endocrine complaints Hematologic/Lymphatic: Reports no additional hematologic/lymphatic complaints Allergic/Immunologic: Reports no additional allergic/immunologic complaints Reports system reviewed and no additional complaints, except as documented and Reports Abnormal speech present [facility] Past Medical History Medical History Urinary incontinence Wheezing Obesity Social History Social History Patient Tobacco Use Status: Current everyday Tobacco user Advance Directives: No Advance Directives Information Provided: Yes Physical Exam ED Vital Signs: Vital Signs - 24 hr 08/07/24 13:48 08/07/24 22:00 Temperature 98.3 F 98.4 F Pulse Rate 71 64 Respiratory Rate 16 18 Blood Pressure 166/119 H 162/91 H Pulse Oximetry 98 99 Oxygen Delivery Method Room Air Room Air BMI result Body Mass Index 62.3 Vital signs have been reviewed and appear to be correct. Blood pressure elevated. Heart rate normal. Respiratory rate normal. Temperature normal. Oxygen saturation normal. Appearance: Alert. Oriented X3. No acute distress. Head: Normal external exam. Normocephalic. Atraumatic. No Luna signs noted. No raccoon eyes noted Eyes: PERRLA. EOMI. Conjunctiva and sclera normal. Eyelids normal. ENT: TM's Normal. Pharynx normal. Uvula midline. Moist mucous membranes. No trismus noted. No drooling noted. No muffled voice noted. Neck: Normal inspection. Neck supple. FROM. No adenopathy. Thyroid Normal. No meningeal signs. No neck mass noted. CVS: Normal heart rate and rhythm. Heart sound normal. No murmurs noted. Pulses normal throughout. Respiratory: No respiratory distress. Painless inspiration. Breath sounds normal. No wheezes/rales/rhonchi noted. Chest nontender. No accessory muscle usage noted or decreased air movement noted. Abdomen: Soft and nontender. Bowel sounds normal in all 4 quadrants. No distention noted. No organomegaly noted. No visible injury noted. Back: No CVA tenderness. Full range of motion noted. Skin: Skin warm and dry. Normal skin color. Normal skin turgor. No rashes/lesions/lacerations noted. Extremities: Left lower extremity swelling, area of redness and hotness on medial aspect of left [place] Neuro: Oriented X 3. Cranial nerve exam: II-XII are grossly intact No motor deficit. No sensory deficit. Reflexes normal. Course Course Course Narrative: RME, this is a rapid medical exam performed by Noel Faulkner please refer to primary provider for complete H&P- 39-year-old male presents for evaluation of left leg swelling, pain. He has a history of pain and swelling in this area. He reports since Sunday he has had fevers, pain to his left. He took 4 doses of doxycycline that he got from a friend. Plan for labs including blood cultures, ultrasound of leg. The patient also complains of chronic back pain. He reports history of urinary incontinence worsening over the last month. He reports herniated disc about 10 years ago but no more recent injure Reevaluation(s) Reevaluation #1: 39-year-old male came in with multiple issues. 1. Left lower extremity cellulitis secondary to chronic urinary incontinence (patient with symptoms of urinary incontinence with the back pain for years), no sign of sepsis, will start the patient on doxycycline. 2. Chronic low back pain due to herniated desk with chronic urinary incontinence and chronic back pain radiating to the left lower extremities cauda equina is not favorable diagnosis since the symptoms is been chronic and normal neuro exam. 3. CBC is showing chronic left shift with chronic elevation of immature granulocyte. Time: 23:00 Medical Decision Making Differential Diagnosis Differential Diagnoses: The differential diagnosis associated with the presentation includes (Cauda equina, new neurological deficit, cellulitis, DVT, electrolyte derangement, severe anemia.) Admission/Observation Consideration of admission/observation: Escalation of care including admission/observation considered Lab Data MDM Lab Attestation statement: I reviewed the patient's lab results. 08/07/24 15:33 08/07/24 15:33 Labs: Lab Results 08/07/24 Range/Units 15:33 WBC 9.2 (4.8-10.8) X10*3/uL RBC 4.79 (4.60-5.80) X10*6/uL Hgb 14.5 (14.0-18.0) g/dl Hct 44.1 (42.0-52.0) % MCV 92.1 (80.0-98.0) fL MCH 30.3 (27.0-33.0) pg MCHC 32.9 (31.0-36.0) g/dl RDW 13.8 (11.0-16.0) % Plt Count 235 (160-400) X10*3/uL MPV 10.5 (9.4-12.4) fL Immature Gran % (Auto) 1.9 H (0.0-0.4) % Neut % (Auto) 68.7 (45-73) % Lymph % (Auto) 18.3 L (20-40) % [place] % (Auto) 7.7 (2-11) % Eos % (Auto) 2.8 (0-4) % Baso % (Auto) 0.6 (0-2) % Lymph # (Auto) 1.7 (1.2-4.9) X10*3/uL [place] # (Auto) 0.7 (0.1-1.2) X10*3/uL Eos # (Auto) 0.3 (0.0-0.4) X10*3/uL Baso # (Auto) 0.1 (0.0-0.2) X10*3/uL Abs Immat Gran (auto) 0.18 H (0.00-0.03) X10*3/uL Absolute Neuts (auto) 6.3 (2.0-8.3) x10*3/uL Absolute Nucleated RBC 0.000 (0.0-0.012) X10*3/uL Nucleated RBC % (auto) 0.0 (0.0-0.2) /100WBC ESR 33 H (0-15) MM/HR Sodium 142 (135-145) mmol/L Potassium 4.3 (3.3-5.1) mmol/L Chloride 109 H (96-108) mmol/L Carbon Dioxide 28 (22-29) mmol/L Anion Gap 9 L (12-20) BUN 15 (9-16) mg/dL Creatinine 0.87 (0.5-1.4) mg/dL Estim Creat Clear Calc 203.5 Estimated GFR > 60 Random Glucose 117 H (60-115) mg/dL Lactic Acid 1.1 (0.5-2.0) mmol/L Calcium 8.7 (8.4-10.2) mg/dL Total Bilirubin 0.4 (0.0-1.0) mg/dL AST 26 (5-37) U/L ALT 43 H (0-40) U/L Alkaline Phosphatase 65 (39-117) U/L C-Reactive Protein 9.28 H (< or = 0.50) mg/dL Total Protein 6.9 (6.5-8.0) g/dL Albumin 3.7 (3.5-5.0) g/dL Lipase 16 (8-78) U/L Influenza Type A (PCR) NEGATIVE (Negative) Influenza Type B (PCR) NEGATIVE (Negative) RSV RNA Qual (PCR) NEGATIVE (Negative) SARS-CoV-2 RNA (RT-PCR) NEGATIVE (Negative) Independent Interpretation I performed an independent interpretation of an: Ultrasound (Left lower extremity: No DVT.) Radiology Impression Discussion of test interpretation with radiology: I have reviewed the radiologist's reading. Discharge Plan Discharge Clinical Impression: Cellulitis of left leg Patient Disposition: Home, Self-Care Instructions: Cellulitis (ED) Prescriptions: New doxycycline hyclate 100 mg tablet 100 mg PO BID Qty: 20 0RF No Action clotrimazole [Athlete's Foot (clotrimazole)] 1 % cream 1 appl topical BID 14 Days Qty: 30 0RF nystatin 100,000 unit/gram powder 1 appl topical DAILY 7 Days Qty: 30 0RF albuterol sulfate 90 mcg/actuation HFA aerosol inhaler 2 puff inhalation QID PRN (Reason: shortness of breath or wheezing) Qty: 6.7 0RF fluticasone furoate 100 mcg/actuation blister with device 1 inh inhalation Q24H Qty: 30 0RF Rx Instructions: rinse mouth after ondansetron 4 mg tablet,disintegrating 4 mg PO Q8H PRN (Reason: nausea and vomiting) Qty: 20 0RF prednisone 50 mg tablet 50 mg PO DAILY Qty: 5 0RF albuterol sulfate 90 mcg/actuation HFA aerosol inhaler 2 puff inhalation Q4-6H PRN (Reason: shortness of breath or wheezing) Qty: 8.5 0RF erythromycin 5 mg/gram (0.5 %) ointment 0.5 inch ophthalmic (eye) QID Qty: 3.5 0RF Referrals: Natasha Salomon NP [Primary Care Provider] - Stand Alone Forms: Work/School Release Print Language: Danish
[2024-08-07 15:41] LABS: MANUAL DIFF FLAG NO
[2024-08-07 15:48] LABS: Basophils Absolute Auto 0.1 X10*3/uL (0.0-0.2); Basophils Percent Auto 0.6 % (0-2); Eosinophils Absolute Auto 0.3 X10*3/uL (0.0-0.4); Eosinophils Percent Auto 2.8 % (0-4); Hematocrit 44.1 % (42.0-52.0); Hemoglobin 14.5 g/dl (14.0-18.0); Imm Gran Abs Auto 0.18 X10*3/uL (0.00-0.03); Imm Gran Pct Auto 1.9 % (0.0-0.4); Lymphocytes Absolute Auto 1.7 X10*3/uL (1.2-4.9); Lymphocytes Percent Auto 18.3 % (20-40); Mean Corpuscular HGB Conc 32.9 g/dl (31.0-36.0); Mean Corpuscular Hemoglobin 30.3 pg (27.0-33.0); Mean Corpuscular Volume 92.1 fL (80.0-98.0); Mean Platelet Volume 10.5 fL (9.4-12.4); Monocytes Absolute Auto 0.7 X10*3/uL (0.1-1.2); Monocytes Percent Auto 7.7 % (2-11); Neutrophils Absolute Auto 6.3 x10*3/uL (2.0-8.3); Neutrophils Percent Auto 68.7 % (45-73); Platelet Count 235 X10*3/uL (160-400); Red Blood Count 4.79 X10*6/uL (4.60-5.80); Red Cell Distribution Width 13.8 % (11.0-16.0); White Blood Count 9.2 X10*3/uL (4.8-10.8)
[2024-08-07 15:57] LABS: Lactic Acid 1.1 mmol/L (0.5-2.0)
[2024-08-07 15:59] LABS: Alanine Aminotransferase 43 U/L (0-40); Albumin Level 3.7 g/dL (3.5-5.0); Anion Gap 9 (12-20); Aspartate Amino Transferase 26 U/L (5-37); Bilirubin Total 0.4 mg/dL (0.0-1.0); Blood Urea Nitrogen 15 mg/dL (9-16); C Reactive Protein 9.28 mg/dL (< or = 0.50); Calcium 8.7 mg/dL (8.4-10.2); Carbon Dioxide 28 mmol/L (22-29); Chloride 109 mmol/L (96-108); Creatinine Clr Calc Pharmacy 203.5; Estimated Glomerular Filt Rate > 60; Glucose Random 117 mg/dL (60-115); Lipase 16 U/L (8-78); Potassium 4.3 mmol/L (3.3-5.1); Sodium 142 mmol/L (135-145); Total Protein 6.9 g/dL (6.5-8.0)
[2024-08-07 16:17] LABS: Alkaline Phosphatase 65 U/L (39-117)
[2024-08-07 16:27] LABS: Influenza A PCR NEGATIVE (Negative); Influenza B PCR NEGATIVE (Negative); Resp Syncy Virus RNA Qual PCR NEGATIVE (Negative); SARS COV2 PCR INHOUSE NEGATIVE (Negative)
[2024-08-07 16:37] LABS: Erythrocyte Sedimentation Rate 33 MM/HR (0-15)
[2024-08-07 22:00] VITALS: BP 162/91; PULSE 64; RESP 18; TEMP 36.9; O2SAT 99
[2024-08-07 23:27] VITALS: BP 147/63; PULSE 70; RESP 20; TEMP 36.6; O2SAT 96
[2024-08-07] MEDS: Doxycycline Monohydrate 100 MG CAPSULE PO (23:29)
[2024-08-07 23:30] VITALS: BP 147/63; PULSE 70; RESP 20; TEMP 36.6; O2SAT 96
== END 2024-08-07 23:30 | disposition home or self-care (01) ==
PROVIDERS: Physician Assistant; Emergency Provider Emergency Medicine; PCP Nurse Practitioner Family
DX: L03.116 Cellulitis of left lower limb (principal); M79.605 Pain in left leg; Z03.818 Encounter for observation for suspected exposure to other biological agents ruled out; R32 Unspecified urinary incontinence; E66.9 Obesity, unspecified; Z68.44 Body mass index [BMI] 60.0-69.9, adult
CPT/HCPCS: 0241U; 80053; 83605; 83690; 85025; 85652; 86140; 87040; 87147; 87205; 93971; 99283; 99284

== ENCOUNTER 2024-10-06 14:48 | Outpatient (AMB) | payer OTHER, SELFPAY ==
[2024-10-06 15:28] VITALS: BP 122/84; PULSE 85; TEMP 36.9; O2SAT 96; BMI 57.6
--- NOTE | 2024-10-06 15:28 | AM.OFFWIN_ITS ---
Intake Vital Signs 10/06/24 15:28 Height 5 ft 11 in Weight 413 lb BMI 57.6 BP 122/84 Blood Pressure Location Rt brachial Position Sitting Pulse 85 Pulse Source Pulse Oximeter Temp 98.4 F Temp Source Oral Pulse Oximetry (%) 96 Oxygen Delivery Method Room Air Intake Visit Reasons: [employer]-rt ear infection Patient Tobacco Use Status: Current everyday Tobacco user Allergies divalproex sodium [From [facility]] Allergy (Severe, Verified 08/07/24 13:54) HIVES Medication List - Last Reconciled 10/06/24 by Ileana Long NP acetaminophen 1,000 mg (2 x 500 mg) PO Q6H PRN ciprofloxacin-dexamethasone 0.3-0.1 % 4 drps otic (ears) Q12H 7 days Do you need a note to return to daycare/school/sports/work: Yes HPI HPI Comments History of Present Illness Details 39 y/o male patient who presents to the walk in clinic with c/o right ear pain since this morning. PFSH Medical History (Updated 10/06/24 @ 15:51 by Ileana Long NP) Otitis external Otogenic otalgia of right ear Urinary incontinence Wheezing Obesity Social History Patient Tobacco Use Status: Current everyday Tobacco user Review of Systems Const All systems reviewed & are unremarkable except as noted in HPI and below Physical Exam Vital Signs: Last Vital Signs Temp 98.4 F 10/06/24 15:28 Pulse 85 10/06/24 15:28 BP 122/84 10/06/24 15:28 Pulse Ox 96 10/06/24 15:28 Oxygen Delivery Method Room Air 10/06/24 15:28 BMI result Body Mass Index 57.6 Const General: cooperative and no acute distress Nutritional Appearance: obese morbidly obese Orientation/consciousness: patient oriented x3 HEENT Head: Yes normocephalic Ears: external ears normal and TM abnormal bulging on the right, erythematous on the right and with fluid behind the TM on the right and on the left General nose exam: Normal external nose present Face and sinus: Yes sinuses nontender Mouth: moist mucous membranes Neuro General: patient oriented x3 Assessment & Plan Assessment & Plan (1) Otogenic otalgia of right ear: Code(s): H92.01 - Otalgia, right ear Plan: Acetaminophen for pain relief. (2) Otitis external: Code(s): H60.90 - Unspecified otitis externa, unspecified ear Qualifiers: Otitis externa type: unspecified type Chronicity: acute Laterality: right Qualified Code(s): H60.501 - Unspecified acute noninfective otitis externa, right ear Plan: Ordered Abx ear drops. Medications: New ciprofloxacin-dexamethasone 0.3-0.1 % 4 drps otic (ears) Q12H 7 days 7.5 mL 0RF H60.501 - Unspecified acute noninfective otitis externa, right ear acetaminophen 1,000 mg (2 x 500 mg) PO Q6H PRN 30 caps 0RF pain H92.01 - Otalgia, right ear Discontinued albuterol sulfate 90 mcg/actuation Discontinued Reason: Patient Completed Course 2 puffs inhalation QID PRN 6.7 grams 0RF shortness of breath or wheezing nystatin Discontinued Reason: Patient Completed Course 1 appl topical DAILY 1 week 30 grams 0RF ondansetron Discontinued Reason: Patient Completed Course 4 mg PO Q8H PRN 20 tabs 0RF nausea and vomiting albuterol sulfate 90 mcg/actuation Discontinued Reason: Patient Completed Course 2 puffs inhalation Q4-6H PRN 8.5 grams 0RF shortness of breath or wheezing erythromycin Discontinued Reason: Patient Completed Course 0.5 inches ophthalmic (eye) QID 3.5 grams 0RF prednisone Discontinued Reason: Patient Completed Course 50 mg PO DAILY 5 tabs 0RF clotrimazole 1% (Athlete's Foot (clotrimazole)) Discontinued Reason: Patient Completed Course 1 appl topical BID 2 weeks 30 grams 0RF fluticasone furoate 100 mcg/actuation rinse mouth after Discontinued Reason: Patient Completed Course 1 inh inhalation Q24H 30 ea 0RF doxycycline hyclate Discontinued Reason: Patient Completed Course 100 mg PO BID 20 tabs 0RF Coding Level of Care Code New Pt Level 4 (98959) Diagnoses Otogenic otalgia of right ear H92.01 Acute otitis externa of right ear, unspecified type H60.501 Otitis externa type: unspecified type Chronicity: acute Laterality: right Time Spent (min) 20
--- OUTSIDE RECORDS SUMMARY | 2024-10-06 17:01 | XMS_ITS ---
Author Name [facility] Organization Unknown Results Test Name/Text Value Interpretation Date Range Source CREAT SERPL [facility] 0.8mg/dL Normal [id number] 0.7 - 1.3 [facility] SODIUM SERPL [facility] 140mmol/L Normal [id number] 135 - 145 [facility] GLUCOSE SERPL [facility] 119mg/dL Normal [id number] 70 - 199 [facility] Glomerular filtration rate/1.73 sq M. predicted 116 Normal [id number] 60 - [facility] CHLORIDE SERPL [facility] 104mmol/L Normal [id number] 98 - 10 7 [facility] HCO3 SER [facility] 30mmol/L Normal [id number] 24 - 32 [facility] POTASSIUM SERPL [facility] 4mmol/L Normal [id number] 3.5 - 5.1 [facility] ANION GAP SERPL [facility] 6mmol/L Normal [id number] 5 - 14 [facility] BUN SERPL [facility] 12mg/dL Normal [id number] 9 - 20 [facility] CALCIUM SERPL [facility] 8.7mg/dL Normal [id number] 8.4 - 10 .2 [facility] RBC NO. BLD AUTO 5.18M/uL Normal [id number] 4.7 - 6 [facility] MCH RBC QN AUTO 30pg Normal [id number] 25 - 33 C [facility] MCHC RBC AUTO [facility]NC 33.1g/dL Normal [id number] 32 - 36 [facility] HGB BLD [facility] 15.6g/dL Normal [id number] 13.5 - 18 [facility] WBC NO. BLD AUTO 8.9K/uL Normal [id number] 4 - 10.5 [facility] HCT VFR BLD AUTO 47% Normal [id number] 40 - 54 [facility] MCV RBC AUTO 90.7fL Normal [id number] 78 - 100 [facility] RDW RBC AUTO RTO 14.4% Normal [id number] 12.1 - 17. 7 [facility] PLATELET NO. BLD AUTO 193K/uL Normal [id number] 150 - 450 [facility] PMV BLD AUTO 8.9fL Normal [id number] 7.4 - 11.4 [facility] History of Medication Use Medication Directions Dispensed Refills Start Date End Date Stat NIFEdipine (PROCARDIA XL) 24 hr tablet 30 mg 30 mg, Oral, Daily, First dose on Sun01/04/24 at 0900Do not crush, split or chew tablet. 01/04/2024 active sodium chloride 0.9% (NS) infusion 75 mL/hr, Intravenous, Continuous, Starting on Sun01/04/24 at 1000, For 4 hours, Post-Procedure 01/04/2024 4 completed enoxaparin (LOVENOX) syringe 40 mg 40 mg, Subcutaneous, Every 24 hours, First dose on Sun01/01/24 at 2330Enoxaparin NOT recommended if CrCl<30??Administ er in abdomen (at least 2 inches from navel) 01/02/2024 active atorvastatin (LIPITOR) tablet 40 mg 40 mg, Oral, Every Evening, First dose on Sun01/04/24 at 1800Pregnancy Risk Factor Category: X 01/03/2024 active ALPRAZolam (XANAX) tablet 0.25 mg 0.25 mg, Oral, Once, On Sun01/03/24 at 1730, For 1 dose 01/03/2024 4 completed calcium carbonate (TUMS) chewable tablet 750 mg 750 mg, Oral, Daily as needed, indigestion, Starting on Sun01/03/24 at 1807 01/03/2024 active ondansetron (ZOFRAN-ODT) 4 MG disintegrating tablet Take 1 tablet (4 mg total) by mouth every 8 (eight) hours as needed for nausea for up to 8 doses. 12/03/2023 4 aborted fluticasone (FLONASE) 50 MCG/ACT nasal spray spray/apply 1 spray in each nostril daily. 06/26/2023 4 active ipratropium-albutero l (DUO-NEB) nebulizer solution 3 mL 3 mL, Inhalation, Every 6 hours PRN, shortness of breath, wheezing, Starting on Sun01/01/24 at 2325 01/02/2024 active LORazepam (ATIVAN) 2 MG/ML injection 1 mg 1 mg, Intravenous, Every 6 hours PRN, anxiety, Starting on Sun01/01/24 at 2352, For 2 doses 01/02/2024 4 completed atorvastatin (LIPITOR) tablet 40 mg Take 1 tablet (40 mg total) by mouth every evening. 01/02/2024 active nicotine (NICODERM CQ) 21 MG/24HR Place 1 patch onto the skin daily. 01/04/2024 active Problems Problem Status Onset Date Problem Type Date of Resoluti on Source Bilateral lower extremity edema active 2023-12-31 [facility] Chest pain, rule out acute myocardial infarction active 2024-01-01 [facility]Act [facility]
--- OUTSIDE RECORDS SUMMARY | 2024-10-06 17:01 | XMS_ITS | Clinical Summary ---
Author Organization [facility] Address [address] [place] [address] Care Team Providers Care Perishable Freight Inspector Name Role Phone Natasha Salomon Primary Care Provider [phone] Allergies Active Allergy Reactions Criticality Noted Date Comments Valproic Acid Rash Low 06/26/2023 Medications Medication Sig Dispensed Refills Start Date End Date Status aspirin 81 MG chewable tablet Chew 1 tablet (81 mg total) by mouth daily. 30 tablet 0 01/09/2024 Active atorvastatin (LIPITOR) tablet 40 mg Take 1 tablet (40 mg total) by mouth every evening. 30 tablet 0 01/09/2024 Active famotidine (Pepcid) 20 MG tablet Take 1 tablet (20 mg total) by mouth 2 (two) times a day. 28 tablet 0 01/09/2024 Active nicotine (NICODERM CQ) 21 MG/24HR Place 1 patch onto the skin daily. 28 patch 0 01/09/2024 Active NIFEdipine (PROCARDIA XL) 30 MG 24 hr tablet Take 1 tablet (30 mg total) by mouth daily. 30 tablet 0 01/09/2024 Active nitroglycerin (NITROSTAT) 0.[address] 1 tablet (0.4 mg total) under the tongue every 5 (five) minutes as needed for chest pain. 90 tablet 12 01/09/2024 Active Active Problems Problem Noted Date Diagnosed Date Chest pain, rule out acute myocardial infarction 01/01/2024 Chest pain 12/31/2023 Bilateral lower extremity edema 12/31/2023 Social History Tobacco Use Types Packs/Day Years Used Date Smoking Tobacco: Every Day Cigarettes 1.5 23 Smokeless Tobacco: Never Tobacco Cessation:Ready to Q uit: Not Asked; Counseling Given: Not Answered Alcohol Use Standard Drinks/Week Comments Yes 0 (1 standard drink = 0.6 oz pur e alcohol) Sex and Gender Information Value Date Recorded Sex Assigned at Male 06/26/2023 12:39 PM EST Gender Identity Not on file Sexual Orientation Not on file Job Start Date Occupation Industry Not on file Not on file Not on file Last Filed Vital Signs Vital Sign Reading Time Taken Comments Blood Pressure 144/72 01/04/2024 1:02 PM EDT Pulse 69 01/04/2024 1:02 PM EDT Temperature 36.8 ??C (98.3 ??F) 01/04/2024 1 1:30 AM EDT Respiratory Rate 25 01/04/2024 1:02 PM EDT Oxygen Saturation 92% 01/04/2024 1:02 PM EDT Inhaled Oxygen Concentration - - Weight 178.3 kg (393 lb 1.3 oz) 01/04/2024 8:23 AM EDT Height 180.3 cm (5' 11 ) 01/04/2024 8:23 AM EDT Body Mass Index 54.82 01/04/2024 8:23 AM EDT Plan of Treatment Health Maintenance Due Date Last Done Comments Hepatitis B Vaccines (1 of 3 - 3-dose series) 1985 Hepatitis C Screening 1985 Depression Screening 1997 Preventative Health Evaluation 2003 Tobacco Cessation Counseling 2003 COVID-19 Vaccine (3 - 2023-2 5 season) 2024 01/27/2021, 01/05/2021 Influenza Vaccine (#1) 2024 Pneumococcal Vaccine (2 of 2 - PCV) 05/02/2024 05/02/2023 DTap / Tdap / Td (2 - Td or Tdap) 03/31/2029 03/31/2019 RSV Ped < 20 months Aged Out No longe r eligible based on patient's age to complete this topic Advance Directives For more information, please contact: [phone] Latest Code Status on File Code Status Date Activated Date Inactivated Comments Full Code 01/04/2024 9:48 AM 01/04/2024 9:59 PM Code Status History Code Status Date Activated Date Inactivated Comments Full Code 01/04/2024 12:03 AM 01/04/2024 9:48 AM This code status was ascertained in the following way: discussion with patient . Full Code 01/01/2024 11:19 PM 01/03/2024 8:20 PM Care Teams Perishable Freight Inspector Relationship Specialty Start Date End Date Natasha Salomon [address] [place] [id number] PCP - General Family Medicine 06/26/23
--- OUTSIDE RECORDS SUMMARY | 2024-10-06 17:01 | XMS_ITS | Data Portability ---
Author Organization [facility] [employer] ne[facility] [address] Address [address] [place] [address] Assessment No assessment recorded. Plan of Treatment Reminders Order Date Submit Date Provider Last Modified By Organization Details Last Modified Time Details Appointments None record ed. Lab None record ed. Referral None record ed. Procedures None record ed. Surgeries None record ed. Imaging None record ed. Medication Orders None record ed. Patient TargetsNo targets recorded. Patient InstructionsNo instructions recorded. Reason for Referral None Reported. Procedures Surgical History Date Name Laterality Status Provider Name and Address Organization Details Recorded Time OC-DOT PHYSICAL completed Angela BECERRA [employer] 07/20/2022 12:02:50 Imaging Results None recorded. Procedure Notes None recorded. Medical Equipment None Reported. Medications Name Sig Start Date Stop Date Status Note LastModified by Organization Details LastModified Time neomycin-poly myxin-hydroco rt 3.5 mg/mL-10,000 unit/mL-1 % ear solution APPLY 3 DROPS IN EACH AFFECTED EAR 4 TIMES A DAY active Not Available Not Available No t Available Nystop 100,000 unit/gram topical powder APPLY TOPICALLY TO THE AFFECTED AREA EVERY DAY FOR 1 WEEK active Not Available Not Available No t Available albuterol sulfate HFA 90 mcg/actuation aerosol inhaler INHALE 2 PUFFS INTO LUNGS FOUR TIMES DAILY NEEDED FOR SHORTNESS OF BREATH OR WHEEZING active Not Available Not Available No t Available ondansetron 4 mg disintegratin g tablet DISSOLVE 1 TABLET ON THE TONGUE EVERY 8 HOURS NEEDED FOR NAUSEA OR VOMITING active Not Available Not Available No t Available Vitals None Recorded Social History None recorded. Functional Status None recorded. Mental Status None recorded. Family History Nothing Reported. Medical History No medical history recorded. Past Encounters Encounter ID Performer Location Encounter Start Date Encounter Closed Date Diagnosis/Indication Diagnosis SNOMED-CT Code Diagnosis ICD10 Code Diagnosis Note [id number] [address] [place] [address] 10/24/2017 13:35:35 10/24/2017 14:47:[id number] [address] 12/15/2019 13:32:49 12/15/2019 15:23:13 [id number] [address] [place] [address] 07/28/2018 12:37:30 07/28/2018 15:16:14 [id number] [facility] [address] [place] [address] 05/02/2021 08:38:21 05/02/2021 10:12:16 [id number] [address] [facility] [address] 07/27/2020 09:47:10 07/27/2020 12:40:32 [id number] [address] [place] [address] 09/29/2017 14:06:33 09/29/2017 14:44:59 [id number] [facility]IL[facility]PE [facility] [address] [place] [address] 07/20/2022 09:23:43 07/20/2022 13:46:24 Physical examination [id number] Z04.9 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 Sleep apnea - brought sleep study report - compliant 90/90. The patient was given 1 year DOT medical Health Concerns Section Related Observation LastModified by Organization Detai ls LastModified Time None Recorded Concern Status LastModified by Organization Details LastModified Time None Recorded Advance Directives Directive None Recorded Payers Encounter Date Sequence Insurance Name Policy Number Policy Correa Covered Member ID Correa Member ID Guarantor Name 05/02/2021 1 [facility] [id number] Supa Salazar [id number] Supa Salazar 07/20/2022 DO NOT USE Supa Salazar [id number] Supa Salazar
--- OUTSIDE RECORDS SUMMARY | 2024-10-06 17:01 | XMS_ITS | Clinical Summary ---
Demographics Address [address] [address] Home Phone Mobile Phone Email Address Preferred Language en Marital Status Single Yazdanism Affiliation Unknown Race White Ethnic Group Not or Lati no Author Organization [facility] ity Address [address] [place] [address] Care Team Providers Care Dress Designer Name Role Phone Natasha Salomon DEPARTMENTAL BUYER Primary Care Provider [phone] Immunizations Name Administration Dates Next Due Pfizer SARS-CoV-2 COVID-19, mRNA, LNP-S, preservative free 01/27/2021,01/05/2021 Surgical History Surgery Date Site/Laterality Comments CARDIAC CATHETERIZATION 01/04/2024 N/A PROCEDURE:CARDIAC CATHETERIZATION;COMMENT:Procedure: LEFT HEART CATHETERIZATION; Surgeon: Phillip Harris MD; Location: [facility]; Service: Cardiology; Laterality: N/A; Medical History Medical History Date Comments BEL on CPAP DX:BEL on CPAP Varicose veins of left leg with edema DX:Varicose veins of left leg with edema Social History Tobacco Use Types Packs/Day Years Used Date Smoking Tobacco: Every Day Cigarettes Smokeless Tobacco: Never Alcohol Use Standard Drinks/Week Comments Yes 0 (1 standard drink = 0.6 oz pur e alcohol) Sex and Gender Information Value Date Recorded Sex Assigned at Not on file Legal Sex Male 8:23 PM EST Gender Identity Not on file Sexual Orientation Not on file Obstetrics History Plan of Treatment Health Maintenance Due Date Last Done Comments DTaP,Tdap,and Td Vaccines (1 - Tdap) 2004 Hepatitis B Vaccines (1 of 3 - 19+ 3-dose series) 2004 Pneumococcal Vaccine: Pediatrics (0 to 5 Years) and At-Risk Patients (6 to 64 Years) (1 of 2 - PCV) 2004 Depression Screening 09/12/2023 HIV Screening 09/12/2023 Hepatitis C Screening 09/12/2023 Social Influencers of Health Screening 09/12/2023 COVID-19 Vaccine (3 - 2023-25 season) 2024 01/27/2021, 01/05/2021 Influenza Vaccine (#1) 2024 Hypertension/CHF/CAD Annual BMP Blood Test 01/03/2025 01/04/2024, 01/04/2024, 01/03/2024, Additional history exists Cholesterol Screening (Lipid Panel) 01/01/2029 01/02/2024, 01/02/2024 HIB Vaccines Aged Out No longer eligi ble based on patient's age to complete this topic HPV Vaccines Aged Out No longer eligi ble based on patient's age to complete this topic Hepatitis A Vaccines Aged Out No long er eligible based on patient's age to complete this topic IPV Vaccines Aged Out No longer eligi ble based on patient's age to complete this topic MMR Vaccines Aged Out No longer eligi ble based on patient's age to complete this topic Meningococcal ACWY Vaccine Aged Out N o longer eligible based on patient's age to complete this topic Meningococcal B Vacine Aged Out No lo nger eligible based on patient's age to complete this topic RSV Immunization Patients Under 20 months Aged Out No longer eligible based on patient's age to complete this topic Varicella Vaccines Aged Out No longer eligible based on patient's age to complete this topic Care Teams Dress Designer Relationship Specialty Start Date End Date Natasha Salomon, TAE [address] [place] [address] PCP - General 06/26/23
--- OUTSIDE RECORDS SUMMARY | 2024-10-06 17:01 | XMS_ITS | Clinical Summary ---
Demographics Address [address] [address] Home Phone Mobile Phone Preferred Language Spanish Marital Status Single Mu-Ism Affiliation Unknown Race White Ethnic Group Not or Lati no Author Organization [facility] Address [address] [place] [address] Care Team Providers Care Processing Technologist Name Role Phone Kishore Becker Primary Care Provider Source Comments PLEASE NOTE, if this patient is a minor, it may be UNLAWFUL to discuss sensitive information that is contained in these records (such as FAMILY PLANNING, MENTAL HEALTH or SUBSTANCE ABUSE) with the minor patient's parent or other person without the patient's specific authorization.[facility] Allergies Active Allergy Reactions Criticality Noted Date Comments Divalproex Rash High 03/31/2019 Medications No known medications Active Problems Problem Noted Date Diagnosed Date Class 3 severe obesity witho ut serious comorbidity with body mass index (BMI) of 50.0 to 59.9 in adult ([facility]) 03/31/2019 Overview (03/31/2019): 03/31/19 - Body mass index is 57.65 kg/m??. Mild recurrent major depression ([facility]) 2018 Overview (03/31/2019): 03/31/19 - PHQ2 Score: 2 PHQ-9 Total Score (Auto Calculated): 6 Depression Severity:: Mild Patient was being followed by a therapist but has discontinued because he did not like her and she was in [place], which is too far from his house. He confirms interest in referral for counseling today. PHQ9 conducted today, patient scored a 6, placing him in the Mild category for depression severity. Screening for depression 03/31/2019 Overview (03/31/2019): 03/31/19 - PHQ2: Over the last 2 weeks, how often have you been bothered by any of the following problems? Little interest or pleasure in doing things: Several days Feeling down, depressed or hopeless [include irritable if under 18]: Several days PHQ2 Score: 2 Trouble falling or staying asleep, or sleeping too much: Not at all Feeling tired or having little energy: Not at all Poor appetite or overeating: Several days Feeling bad about yourself - or that you are a failure or have let yourself or your family down: Several days Trouble concentrating on things, such as reading the newspaper or watching television: Several days Moving or speaking so slowly that other people could have noticed? Or the opposite - being so fidgety or restless that you have been moving around a lot more than usual: Several days Thoughts you would be better off or of hurting yourself in some way: Not at all If you checked off any problems, how difficult have these problems made it for you to do your work, take care of things at home, or get along with other people?: Somewhat difficult PHQ-9 Total Score (Auto Calculated): 6 Depression Severity:: Mild History of cocaine use 03/31/2019 Overview (03/31/2019): 03/31/19 - Patient admitted to a history of cocaine use. He reports he stopped 2 years ago when his son was born and has not used since. Current every day smoker 03/31/2019 Overview (03/31/2019): 03/31/19 - Patient reports he smokes 1PPD x an unspecified amount of years. Encounter for tobacco use cessation counseling 0 03/31/2019 Overview (03/31/2019): 03/31/19 - Patient smokes 1PPD. He has been trying to quit off and on using a vape pen. He has tried other cessation methods in the past without success: chantix and ?zivan. He reports he is motivated to quit. Market products available to assist with cessation reviewed with patient today and he reported that he will consider the options and let us known at his f/u in 2 weeks which method he is interested in. History of fatty infiltration of liver 9 Overview (03/31/2019): 03/31/19- Subjectively reported today as patient established care, will verify with patient at later visit by requesting he provide this prior diagnosis documentation. History of spinal stenosis 03/31/2019 Overview (03/31/2019): 03/31/19 - Patient reports that he was followed by [facility] in [place] for a bulging disc, who subsequently informed him that he has a narrow spinal canal. He last received injections for pain management 5 years ago which has been managing his pain well to date. Patient does complain of limited range of motion in his back and bilateral lower extremity numbness. Immunizations Name Administration Dates Next Due TDAP 03/31/2019 Family History Medical History Relation Name Comments Diabetes Mother Relation Name Status Comments Mother Social History Tobacco Use Types Packs/Day Years Used Date Smoking Tobacco: Every Day Cigarettes Smokeless Tobacco: Never Alcohol Use Standard Drinks/Week Comments Not Currently 0 (1 standard drink = 0.6 oz pur e alcohol) Social Connections Answer Date Recorded Social Connections and Isolation 0 03/31/2019 Financial Resource Strain Answer Date R ecorded Financial Resource Strain 0 2018 Stress Answer Date Recorded Stress 0 03/31/2019 Physical Activity Answer Date Recorded Physical Activity 0 03/31/2019 Food Insecurity Answer Date Recorded Food 0 03/31/2019 Transportation Needs Answer Date Record ed Transportation 0 03/31/2019 Housing Stability Answer Date Recorded Housing 0 03/31/2019 Safety and Environment Answer Date Saurabh rded Safety 0 03/31/2019 Utilities Answer Date Recorded Utilities 0 03/31/2019 Employment Answer Date Recorded Employment 0 03/31/2019 Comments Unknown Sex and Gender Information Value Date Recorded Sex Assigned at Female 04/01/2019 10:30 AM PDT Legal Sex Male 11:36 AM PDT Gender Identity Female 04/01/2019 10:30 AM PDT Sexual Orientation Bisexual 04/01/2019 10 :30 AM PDT 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 Not on file Not on file Last Filed Vital Signs Vital Sign Reading Time Taken Comments Blood Pressure 132/86 03/31/2019 3:19 PM EDT Pulse 76 03/31/2019 3:19 PM EDT Temperature 36.9 ??C (98.5 ??F) 03/31/2019 3:19 PM ED T Respiratory Rate 18 03/31/2019 3:19 PM EDT Oxygen Saturation - - Inhaled Oxygen Concentration - - Weight 191 kg (421 lb) 03/31/2019 3:19 PM EDT Height 182 cm (5' 11.65 ) 03/31/2019 3:19 PM EDT Body Mass Index 57.65 03/31/2019 3:19 PM EDT Plan of Treatment Health Maintenance Due Date Last Done Comments HPV Screening 1985 Hepatitis B Screening 1985 Hepatitis C Screening 1985 Pap + HPV 1985 Tobacco Cessation Counseling (#1) 1985 Tobacco Screening 1985 HIV Screening 1985 Relationship Safety Screening/Counseling 2000 Imm-Hepatitis B (1 of 3 - 19+ 3-dose series) 4 Imm-Pneumococcal (1 of 2 - PCV) 2004 Cervical Cancer Screening 2006 Pap Smear 2006 Depression Monitoring 07/01/2019 03/31/2019 Annual Preventive Care Visit 03/31/2020 03/31/2019 Hypertension Screening (#1) 03/30/2022 Diabetes Screening 03/31/2022 03/31/2019 [id number] ( season) 2024 Imm-Influenza (#1) 2024 Alcohol and Drug Screen 08/13/2024 03/31/2019 Imm-DTaP/Tdap/Td (2 - Td or Tdap) 03/31/2029 019 Cervical Ablation/Cold-Knife Conization Discontinued Cervical Cryotherapy Discontinued Colposcopy Discontinued Endometrial Biopsy Discontinued Excision/Leep Discontinued HPV Genotyping Discontinued Vaginal Pap Discontinued Vulvoscopy Discontinued Procedures Procedure Name Priority Date/Time Associated Diagnosis Comments COMPREHENSIVE METABOLIC PANEL Routine 03/31/2019 4:00 PM EDT Routine adult health maintenance from Last 3 Months or Most Recently Relevant to Health Maintenance Results * (ABNORMAL) COMPRE METAB PANEL (03/31/2019 4:00 PM EDT) GLUCOSE 102(H) 70 - 100 mg/dL [facility] Comment:Reference range appl icable to fasting specimens only BUN 10 5 - 25 mg/dL [facility] CREAT 1.00 0.7 - 1.3 mg/dL [facility] GLOMERULAR FILTRATION RATE > 60 [facility] Comment: If patient is -[place], multiply result by 1.21 Chronic Kidney Disease: < 60 ml/min/1.73 square meters Kidney Failure: < 15 ml/min/1.73 square meters SODIUM 144 133 - 145 mmol/L [facility] POTASSIUM 4.0 3.5 - 5.5 mmol/L [facility] CHLORIDE 109 96 - 110 mmol/L [facility] CO2 30 21 - 32 mmol/L [facility] ANION GAP 5 3 - 11 [facility] CALCIUM 9.5 8.5 - 10.5 mg/dL [facility] ALBUMIN 4.0 3.2 - 5.0 G/dL [facility] SGOT 33 10 - 42 U/L [facility] SGPT 70(H) 10 - 60 U/L [facility] TOTAL PROTEIN 7.4 6.0 - 8.0 G/dL [facility] BILI, TOTAL 0.4 0.0 - 1.4 mg/dL [facility] ALK PHOS 104 42 - 121 U/L [facility] Blood specimen (specimen) Blood / Unknown 03/31/2019 4:00 PM EDT 03/31/2019 4:04 PM EDT Narrative [facility] - 03/31/2019 7:20 PM EDT [facility] [employer] [address] 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
== END 2024-10-06 16:16 | disposition home or self-care (01) ==
PROVIDERS: PCP Nurse Practitioner Family; Visit Provider Nurse Practitioner Family
DX: H92.01 Otalgia, right ear (principal); H60.501 Unspecified acute noninfective otitis externa, right ear

== ENCOUNTER → 2024-10-06 14:48 | Outpatient (BNVA) | payer OTHER, SELFPAY | PROVIDERS: PCP Nurse Practitioner Family ==

== ENCOUNTER 2024-12-08 09:43 | Emergency (ER) | payer OTHER, SELFPAY ==
[2024-12-08 09:54] VITALS: BP 162/92; PULSE 64; RESP 18; TEMP 36.9; O2SAT 97; BMI 63.2
[2024-12-08 10:23] LABS: MANUAL DIFF FLAG NO
[2024-12-08 10:24] LABS: Basophils Percent Auto 0.5 % (0-2); Eosinophils Absolute Auto 0.2 X10*3/uL (0.0-0.4); Hematocrit 45.2 % (42.0-52.0); Hemoglobin 15.1 g/dl (14.0-18.0); Imm Gran Abs Auto 0.07 X10*3/uL (0.00-0.03); Imm Gran Pct Auto 0.9 % (0.0-0.4); Lymphocytes Absolute Auto 1.5 X10*3/uL (1.2-4.9); Lymphocytes Percent Auto 18.9 % (20-40); Mean Corpuscular HGB Conc 33.4 g/dl (31.0-36.0); Mean Corpuscular Hemoglobin 30.4 pg (27.0-33.0); Mean Corpuscular Volume 91.1 fL (80.0-98.0); Mean Platelet Volume 10.3 fL (9.4-12.4); Monocytes Absolute Auto 0.5 X10*3/uL (0.1-1.2); Monocytes Percent Auto 6.6 % (2-11); Neutrophils Absolute Auto 5.5 x10*3/uL (2.0-8.3); Neutrophils Percent Auto 70.1 % (45-73); Platelet Count 211 X10*3/uL (160-400); Red Blood Count 4.96 X10*6/uL (4.60-5.80); Red Cell Distribution Width 13.7 % (11.0-16.0); White Blood Count 7.8 X10*3/uL (4.8-10.8)
[2024-12-08 10:40] LABS: Anion Gap 10 (12-20); Blood Urea Nitrogen 13 mg/dL (9-16); Calcium 8.5 mg/dL (8.4-10.2); Carbon Dioxide 23 mmol/L (22-29); Chloride 112 mmol/L (96-108); Creatinine Clr Calc Pharmacy 248.3; Estimated Glomerular Filt Rate > 60; Glucose Random 141 mg/dL (60-115); Potassium 4.2 mmol/L (3.3-5.1); Sodium 141 mmol/L (135-145)
[2024-12-08 11:44] LABS: Appearance Urine Clear; Color Urine Yellow; Glucose Urine UA Negative (Negative); Leukocyte Esterase Urine Negative (Negative); Nitrite Urine Negative (Negative); PH 5.5 (5.0-9.0); Specific Gravity - Urine 1.015 (1.005-1.025); Urine Blood Negative (Negative); Urine Ketones Negative (Negative); Urine Protein Negative (Neg-Trace)
[2024-12-08 11:46] LABS: Bacteria Urine None Seen (None Seen); Hyaline Casts Urine 0-2 /LPF (0-2); RBC Urine 0-2 /HPF (0-2); Squamous Epithelial Cell Urine 0-2 /HPF (0-2); WBC Urine 0-5 /HPF (0-5)
[2024-12-08 13:10] LABS: CT PCR NOT DETECTED (Not Detect.); NG PCR NOT DETECTED (Not Detect.)
[2024-12-08 14:12] VITALS: BP 154/97; PULSE 66; RESP 20; O2SAT 98
--- NOTE | 2024-12-08 14:16 | ED_ITS ---
HPI - Male Genitourinary General Chief complaint: Urogenital-Male Stated complaint: frequent urinating Time Seen by Provider: 12/08/24 14:15 Source: patient, RN notes reviewed and old records reviewed Mode of arrival: ambulatory Limitations: no limitations History of Present Illness ED Provider: Kaushik HPI Narrative: 39-year-old male presents for evaluation of urinary frequency. He reports he urinates about 30 times a day and occasionally only dribbles a little bit out at a time. ? He denies any burning with urination, denies any blood in the urine, denies any urethral discharge pain He denies any new sexual partners. He has never been diagnosed with an enlarged prostate No other complaints or concerns at this time Related Data Previous Rx's ?Medication ?Instructions ?Recorded acetaminophen 500 mg capsule 1,000 mg (2 x 500 mg) PO Q6H PRN 10/06/24 pain #30 caps ciprofloxacin 0.3 %-dexamethasone 4 drp otic (ears) Q12H 7 days #7.5 10/06/24 0.1 % ear drops,suspension mL Allergies Allergy/AdvReac Type Severity Reaction Status Date / Time divalproex sodium Allergy Severe HIVES Verified 12/08/24 09:59 [From [facility]] Review of Systems 2 Constitutional: Constitutional: Denies body ache(s), Denies chills and Denies fever(s) ENT: Denies vertigo Cardiovascular: Cardiovascular: Denies chest pain and Denies dyspnea Respiratory: Respiratory: Denies cough and Denies dyspnea Gastrointestinal: Gastrointestinal: Denies abdominal pain, Denies nausea and Denies vomiting Genitourinary: Genitourinary: Denies oliguria, Denies dysuria, Denies flank pain, Denies penile discharge, Denies scrotal swelling, Denies testicular mass, Denies testicular pain, Reports urinary frequency and Reports urinary urgency Integumentary/Breasts: Skin/Breast: Denies rash Neurologic: Denies vertigo PMFSH Past Medical History Medical History (Updated 12/08/24 @ 14:18 by Arsalan Faulkner) Otitis external Otogenic otalgia of right ear Urinary incontinence Wheezing Obesity Social History Social History Patient Tobacco Use Status: Current everyday Tobacco user Advance Directives: No Advance Directives Information Provided: Yes Do you have a plan to hurt others: No Plan Physical Exam 2 Vital Signs: Vital Signs: Last Vital Signs Temp 0 F L 12/08/24 14:29 Pulse 66 12/08/24 14:29 Resp 20 12/08/24 14:29 BP 154/97 H 12/08/24 14:29 Pulse Ox 98 12/08/24 14:29 O2 Del Method Room Air 12/08/24 14:29 BMI result Body Mass Index 63.2 Const: General: healthy appearing, comfortable, no acute distress, alert and awake Nutritional Appearance: well nourished Orientation/consciousness: p atient oriented x3 HEENT: Head: Yes normocephalic and Yes atraumatic Throat: Yes posterior oropharynx normal Eyes: Eyelids: Yes eyelids normal Conjunctivae: conjunctivae normal S clerae: sclerae normal Corneas: corneas normal Pupils: Equal, round and reactive pupils present EOM: EOMs intact bilaterally Neck: Neck: Yes full ROM Resp: Effort & Inspection: normal respiratory effort, able to speak in complete sentences and not labored GI: Inspection: No distended Palpation (GI): Soft to palpation, not firm, nontender, no guarding and not rigid Skin: General skin exam: elasticity normal Neuro: General: patient oriented x3 Cranial nerves: Yes Equal, round and reactive pupils present and Yes Bilaterally intact EOM present Cognition (Neuro): normal cognition Medical Decision Making Medical Decision Making [facility] Narrative: 39-year-old male presents for evaluation of urinary frequency. He denies burning with urination, blood in the urine. Denies any new sexual partners, urethral discharge. He had a workup that included labs, urinalysis. His renal function is within normal limits. He has no leukocytosis to suggest infectious process. Urinalysis is clear without evidence of proteinuria, hematuria or bacteria. His random glucose was slightly elevated to 140, but there was no glucose in the urine. He also had gonorrhea and chlamydia testing which was negative. Patient will be referred to Urology for further evaluation as an outpatient. Differential Diagnosis Differential Diagnoses: The differential diagnosis associated with the presentation includes Polyuria Dysuria Urinary frequency UTI Diabetes Lab Data [facility] Lab Attestation statement: I reviewed the patient's lab results. As above 12/08/24 10:19 12/08/24 10:19 Labs: Lab Results 12/08/24 12/08/24 Range/Units 10:19 11:33 WBC 7.8 (4.8-10.8) X10*3/uL RBC 4.96 (4.60-5.80) X10*6/uL Hgb 15.1 (14.0-18.0) g/dl Hct 45.2 (42.0-52.0) % MCV 91.1 (80.0-98.0) fL MCH 30.4 (27.0-33.0) pg MCHC 33.4 (31.0-36.0) g/dl RDW 13.7 (11.0-16.0) % Plt Count 211 (160-400) X10*3/uL MPV 10.3 (9.4-12.4) fL Immature Gran % (Auto) 0.9 H (0.0-0.4) % Neut % (Auto) 70.1 (45-73) % Lymph % (Auto) 18.9 L (20-40) % Banks % (Auto) 6.6 (2-11) % Eos % (Auto) 3.0 (0-4) % Baso % (Auto) 0.5 (0-2) % Lymph # (Auto) 1.5 (1.2-4.9) X10*3/uL Banks # (Auto) 0.5 (0.1-1.2) X10*3/uL Eos # (Auto) 0.2 (0.0-0.4) X10*3/uL Baso # (Auto) 0.0 (0.0-0.2) X10*3/uL Abs Immat Gran (auto) 0.07 H (0.00-0.03) X10*3/uL Absolute Neuts (auto) 5.5 (2.0-8.3) x10*3/uL Absolute Nucleated RBC 0.000 (0.0-0.012) X10*3/uL Nucleated RBC % (auto) 0.0 (0.0-0.2) /100WBC Sodium 141 (135-145) mmol/L Potassium 4.2 (3.3-5.1) mmol/L Chloride 112 H (96-108) mmol/L Carbon Dioxide 23 (22-29) mmol/L Anion Gap 10 L (12-20) BUN 13 (9-16) mg/dL Creatinine 0.72 (0.5-1.4) mg/dL Estim Creat Clear Calc 248.3 Estimated GFR > 60 Random Glucose 141 H (60-115) mg/dL Calcium 8.5 (8.4-10.2) mg/dL Urine Color Yellow Urine Appearance Clear Urine pH 5.5 (5.0-9.0) Ur Specific [place] 1.015 (1.005-1.025) Urine Protein Negative (Neg-Trace) mg/dL Urine Glucose (UA) Negative (Negative) mg/dL Urine Ketones Negative (Negative) mg/dL Urine Blood Negative (Negative) Urine Nitrite Negative (Negative) Ur Leukocyte Esterase Negative (Negative) Urine RBC 0-2 (0-2) /HPF Urine WBC 0-5 (0-5) /HPF Ur Squamous Epith Cells 0-2 (0-2) /HPF Urine Bacteria None Seen (None Seen) Hyaline Casts 0-2 (0-2) /LPF Chlam trachomat DNA PCR NOT DETECTED (Not Detect.) N.gonorrhoeae DNA (PCR) NOT DETECTED (Not Detect.) Discharge Plan Discharge Clinical Impression: Urinary frequency Patient Disposition: Home, Self-Care Instructions: Polyuria (ED) Additional Instructions: Your workup in the ER today was reassuring. Your urinalysis was perfectly clear. There was no signs of blood, or infection. Your glucose was very slightly elevated but this is not significantly abnormal for a random glucose and does not mean that you have diabetes. I recommend that you follow-up with urology for your urinary frequency You may benefit from a cystoscopy. Your symptoms may be related to enlarged prostate Prescriptions: No Action ciprofloxacin-dexamethasone 0.3-0.1 % drops,suspension 4 drp otic (ears) Q12H 7 Days Qty: 7.5 0RF acetaminophen 500 mg capsule 1,000 mg PO Q6H PRN (Reason: pain) Qty: 30 0RF Referrals: John Dennis MD [Physician] - (urinary frequency, negative er wrokup) Stand Alone Forms: Work/School Release Interventions: ED Discharge Assessment Last Done: 12/08/24 14:29 Discharge Date/Time: 12/08/24 14:30 Print Language: Slovenian
[2024-12-08 14:29] VITALS: BP 154/97; PULSE 66; RESP 20; TEMP -17.7; TEMP 0; O2SAT 98
--- OUTSIDE RECORDS SUMMARY | 2024-12-08 17:07 | XMS_ITS | Data Portability ---
Author Organization [facility] [employer] [address] Address [address] [place] [address] Assessment No assessment recorded. Plan of Treatment [...] Recorded Time OC-DOT PHYSICAL completed Angela BECERRA [place] 07/20/2022 12:02:50 Imaging Results None recorded. Procedure [...] SNOMED-CT Code Diagnosis ICD10 Code Diagnosis Note [id number] [address] [place] [address] 10/24/2017 13:35:35 10/24/2017 14:47:11 [id number] [address] [address] 12/15/2019 13:32:49 12/15/2019 15:23:13 [id number] [address] [place] [address] 07/28/2018 12:37:30 07/28/2018 15:16:14 [id number] [facility] [address] [place] [address] 05/02/2021 08:38:21 05/02/2021 10:12:16 [id number] [address] [facility] [address] [address] 07/27/2020 09:47:10 07/27/2020 12:40:32 [id number] [address] [place] [address] 09/29/2017 14:06:33 09/29/2017 14:44:59 [id number] [facility] [address] [address] [place] [address] 07/20/2022 09:23:43 07/20/2022 13:46:24 Physical examination [id number] Z04.9 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 [...] Correa Member ID Guarantor Name 05/02/2021 1 [facility] [id number] Supa Salazar [id number] Supa Salazar 07/20/2022 DO NOT USE Supa Salazar [id number] Supa Salazar
--- OUTSIDE RECORDS SUMMARY | 2024-12-08 17:07 | XMS_ITS | Clinical Summary ---
Demographics Address [address] [address] Home Phone Mobile Phone Preferred Language Japanese Marital Status Single Taoist Affiliation Unknown Race White Ethnic Group Not or Lati no Author Organization [facility] Address [address] [place] [address] Care Team Providers Care Welding Machine Operator Resistance Name Role Phone Kishore Becker Primary Care Provider [phone] Source Comments PLEASE NOTE, if this patient [...] (BMI) of 50.0 to 59.9 in adult ([facility]) 03/31/2019 Overview (03/31/2019): 03/31/19 - Body mass index is 57.65 kg/m??. Mild recurrent major depression ([facility] V24) 0 03/31/2019 Overview (03/31/2019): 03/31/19 - PHQ2 Score: 2 PHQ-9 Total Score (Auto Calculated): 6 Depression Severity:: Mild Patient was being followed by a therapist but has discontinued because he did not like her and she was in [place], which is too far from his house. [...] Patient reports that he was followed by [facility] in [place] for a bulging disc, who subsequently informed him that he has a narrow spinal canal. He last received injections for pain management 5 years ago which has been managing his pain well to date. Patient does complain of limited range of motion in his back and bilateral lower extremity numbness. Immunizations Immunization Administration Dates Next Due TDAP 03/31/2019 Family [...] Industry Job Start Date Job End Date [employer] Not on file Not on file Not [...] Health Maintenance Due Date Last Done Comments Anxiety Screening 1985 HPV Screening 1985 Hepatitis B Screening 1985 [...] Screening (#1) 03/30/2022 Diabetes Screening 03/31/2022 03/31/2019 [id number] ( season) 2024 Imm-Influenza (#1) 2024 Alcohol [...] EDT) GLUCOSE 102(H) 70 - 100 mg/dL [facility] Comment:Reference range appl icable to fasting specimens only BUN 10 5 - 25 mg/dL [facility] CREAT 1.00 0.7 - 1.3 mg/dL [facility] GLOMERULAR FILTRATION RATE > 60 [facility] Comment: If patient is -Bermudian, multiply result by 1.21 Chronic Kidney Disease: < 60 ml/min/1.73 square meters Kidney Failure: < 15 ml/min/1.73 square meters SODIUM 144 133 - 145 mmol/L [facility] POTASSIUM 4.0 3.5 - 5.5 mmol/L [facility] CHLORIDE 109 96 - 110 mmol/L [facility] CO2 30 21 - 32 mmol/L [facility] ANION GAP 5 3 - 11 [facility] CALCIUM 9.5 8.5 - 10.5 mg/dL [facility] ALBUMIN 4.0 3.2 - 5.0 G/dL [facility] SGOT 33 10 - 42 U/L [facility] SGPT 70(H) 10 - 60 U/L [facility] TOTAL PROTEIN 7.4 6.0 - 8.0 G/dL [facility] BILI, TOTAL 0.4 0.0 - 1.4 mg/dL [facility] ALK PHOS 104 42 - 121 U/L [facility] Blood specimen (specimen) Blood / Unknown 03/31/2019 4:00 PM EDT 03/31/2019 4:04 PM EDT Narrative [facility] - 03/31/2019 7:20 PM EDT [employer] [address] Mop Maker [place] [id number] ORD# [id number] Kishore BECERRA [facility] - BLOOD [place]RAW [place] [address], [place] [phone] from Last 3 Months or Most Recently Relevant to Health Maintenance [facility] Care Teams Welding Machine Operator Resistance Relationship Specialty Start Date End Date Kishore Becker PA [address] [place] [address] PCP - General Internal Medicine 03/04/19
--- OUTSIDE RECORDS SUMMARY | 2024-12-08 17:07 | XMS_ITS | Clinical Summary ---
Demographics Address [address] [address] Home Phone Mobile Phone Email Address Preferred Language en Marital Status Single Amish Affiliation Unknown Race White Ethnic Group Not or Lati no Author Organization [facility] ity Address [address] [place] [address] Care Team Providers Care Motorized Squad Captain Name Role Phone Natasha Salomon INTERRELATED SPECIAL EDUCATION TEACHER Primary Care Provider [phone] Immunizations Name Administration Dates Next Due Pfizer SARS-CoV-2 COVID-19, mRNA, LNP-S, preservative free 01/27/2021,01/05/2021 Surgical History Surgery Date Site/Laterality Comments CARDIAC CATHETERIZATION 01/04/2024 N/A PROCEDURE:CARDIAC CATHETERIZATION;COMMENT:Procedure: LEFT HEART CATHETERIZATION; Surgeon: Phillip Harris MD; Location: [facility] CARDIAC CASING FLUSHER; Service: Cardiology; Laterality: N/A; Medical History Medical [...] (3 - 2023-25 season) 2024 01/27/2021, 01/05/2021 Hypertension/CHF/CAD Annual BMP Blood Test 01/03/2025 01/04/2024, 01/04/2024, 01/03/2024, Additional history exists Influenza Vaccine (Season Ended) 2025 Cholesterol Screening (Lipid Panel) 01/01/2029 01/02/2024, 01/02/2024 [...] age to complete this topic Meningococcal B Vaccine Aged Out No l onger eligible based on patient's age to complete this topic RSV Immunization Patients Under 20 months Aged Out No longer eligible based on patient's age to complete this topic Varicella Vaccines Aged Out No longer eligible based on patient's age to complete this topic Care Teams Motorized Squad Captain Relationship Specialty Start Date End Date Natasha Salomon NP [address] [place] [address] PCP - General 06/26/23
--- OUTSIDE RECORDS SUMMARY | 2024-12-08 17:07 | XMS_ITS | Clinical Summary ---
Author Organization [facility] Address [address] [place] [address] Care Team Providers Care Sys Dir Name Role Phone Natasha Salomon Primary Care Provider [phone] Allergies Active Allergy Reactions Criticality Noted Date [...] Advance Directives For more information, please contact: [phone] Latest Code Status on File Code Status Date Activated Date Inactivated Comments Full Code 01/04/2024 9:48 AM 01/04/2024 9:59 PM Code Status History Code Status Date Activated Date Inactivated Comments Full Code 01/04/2024 12:03 AM 01/04/2024 9:48 AM This code status was ascertained in the following way: discussion with patient . Full Code 01/01/2024 11:19 PM 01/03/2024 8:20 PM Care Teams Sys Dir Relationship Specialty Start Date End Date Natasha Salomon [address] [place] [address] PCP - General Family Medicine 06/26/23
== END 2024-12-08 14:30 | disposition home or self-care (01) ==
PROVIDERS: Emergency Provider Emergency Medicine Emergency Medical Services; PCP Nurse Practitioner Family
DX: R35.0 Frequency of micturition (principal); F17.210 Nicotine dependence, cigarettes, uncomplicated; Z79.899 Other long term (current) drug therapy
CPT/HCPCS: 36415; 80048; 81001; 85025; 87491; 87591; 99282; 99283